=== PATIENT | female | born 1960 | race Caucasian/White ===

== ENCOUNTER 2019-06-12 09:53 | Inpatient (IN) ==
[2019-06-12] MEDS ORDERED: CeFAZolin Syr 2,000MG/20 ML 2,000 MG/20 ML SYRINGE IVPB ONE (10:09)
[2019-06-12] MEDS ORDERED: Ringers Solution, Lactated 1,000 ML IVC SCH (10:15)
[2019-06-12] MEDS ORDERED: Famotidine 20 MG/2 ML VIAL IVP ONE (10:19)
[2019-06-12] MEDS ORDERED: Acetaminophen IV 1,000 MG/100 ML INFUS..BTL IVPB ONE (10:28)
[2019-06-12] MEDS ORDERED: Pregabalin 75 MG CAPSULE PO ONE (10:29)
[2019-06-12] MEDS ORDERED: *HR* Succinylcholine 200 MG/10 ML VIAL IVP ONE (10:51)
[2019-06-12] MEDS ORDERED: *HR* Rocuronium Bromide 50 MG/5 ML VIAL ONE (10:51)
[2019-06-12] MEDS ORDERED: Tranexamic Acid 1,000 MG/10 ML VIAL ONE (10:52)
[2019-06-12] MEDS ORDERED: Lidocaine HCL 4 ML Topical Solution (Laryng-O-Jet Kit Sterile Pak) TP ONE (10:52)
[2019-06-12] MEDS ORDERED: *HR* FentaNYL (PF) 100 MCG/2 ML VIAL ONE (10:53)
[2019-06-12] MEDS ORDERED: *HR* Propofol 200 MG/20 ML VIAL IVP ONE (10:53)
[2019-06-12] MEDS ORDERED: Lidocaine -MPF 2% 2 ML VIAL ONE (10:53)
[2019-06-12] MEDS ORDERED: *HR* Midazolam HCl 2 MG/2 ML VIAL ONE (10:53)
[2019-06-12] MEDS ORDERED: Dexamethasone 4 MG/ML VIAL ONE (10:53)
[2019-06-12] MEDS ORDERED: Ondansetron 4 MG/2 ML VIAL ONE (10:53)
[2019-06-12] MEDS ORDERED: Scopolamine Patch 1.5 MG PATCH.TD72 TD ONE ×2 (10:54→10:57)
[2019-06-12] MEDS ORDERED: Ethanol\\Acetic Acid\\Na Ace\\Ben 1,000 ML IRRIG.SOLN IR ONE (11:37)
[2019-06-12] MEDS ORDERED: *HR* HYDROMORPHONE 2 MG/ML VIAL ONE (12:09)
[2019-06-12] MEDS ORDERED: Ketorolac 30 MG/ML VIAL ONE (12:45)
[2019-06-12] MEDS ORDERED: *HR* FentaNYL (PF) 100 MCG/2 ML VIAL IVP PRN (13:51)
[2019-06-12] MEDS ORDERED: *HR* Midazolam HCl 2 MG/2 ML VIAL IVP PRN (13:51)
[2019-06-12] MEDS ORDERED: *HR* Meperidine 25 MG/ML SYRINGE IVP PRN (13:51)
[2019-06-12] MEDS ORDERED: *HR* Promethazine 25 MG/ML VIAL IVP PRN ×2 (13:51→14:49)
[2019-06-12] MEDS ORDERED: *HR* OxyCODONE Immed Rel 5 MG TABLET PO PRN (13:51)
[2019-06-12] MEDS: *HR* HYDROmorphone (PF) 1 MG/ML SYRINGE IVP PRN ×2 (14:06→14:12)
[2019-06-12] MEDS ORDERED: traMADol 50 MG TABLET PO PRN (14:49)
[2019-06-12] MEDS ORDERED: Naloxone 0.4 MG/ML INJ IVP PRN (14:49)
[2019-06-12] MEDS ORDERED: Sennosides 8.6 MG TABLET PO PRN (14:49)
[2019-06-12] MEDS ORDERED: MOM Conc 10 ML UD.LIQ PO PRN (14:49)
[2019-06-12] MEDS ORDERED: Ondansetron 4 MG/2 ML VIAL IVP PRN (14:49)
[2019-06-12] MEDS ORDERED: Temazepam 15 MG CAPSULE PO PRN (14:49)
[2019-06-12 16:13] LABS: Hematocrit 37.2 % (35.3-44.9); Hemoglobin 12.4 g/dL (11.5-15.4)
[2019-06-12] MEDS: HYDROcodone BIT/Homatropine 5 MG TABLET PO PRN ×2 (17:07→21:09)
[2019-06-12] MEDS: Ascorbic Acid 500 MG TABLET PO SCH (17:07)
[2019-06-12] MEDS: Ringers Solution, Lactated 1,000 ML IVC SCH (17:08)
[2019-06-12] MEDS: *HR* Metformin 500 MG TABLET PO SCH (17:08)
[2019-06-12] MEDS ORDERED: D5% in Water 1,000 ML IVC PRN (18:27)
[2019-06-12] MEDS ORDERED: Dextrose Gel 15 GM/37.5 ML TUBE PO PRN ×2 (18:27)
[2019-06-12] MEDS ORDERED: *HR* Dextrose 50 % in Water (Syg) 50 ML SYRINGE IVP PRN (18:27)
[2019-06-12] MEDS: Pregabalin 75 MG CAPSULE PO SCH (21:10)
[2019-06-12] MEDS: Celecoxib 100 MG CAPSULE PO SCH (21:10)
[2019-06-12] MEDS: Insulin LISPRO 300 UNITS/3 ML VIAL SQ SCH (21:13)
[2019-06-13 05:49] LABS: Basophils % 0.1 %; Hematocrit 31.5 % (35.3-44.9); Immature Granulocytes % 0.4 % (0-4); Lymphocytes # 0.8 K/mcL (0.6-4.6); Mean Corpuscular HGB Conc 33.3 g/dL (31.6-35.5); Mean Corpuscular Hemoglobin 29.9 pg (28.0-33.3); Mean Corpuscular Volume 89.7 fL (83.0-100.0); Mean Platelet Volume 10.4 fL (9.4-12.4); Monocytes # 0.8 K/mcL (0.0-1.3); Monocytes % 11.7 %; Neutrophils # 5.2 K/mcL (1.6-8.9); Platelet Count 233 K/mcL (140-400); Red Blood Count 3.51 M/mcL (3.82-4.97); Segmented Neutrophils % 75.8 %; White Blood Count 6.8 K/mcL (4.3-11.1)
[2019-06-13 05:54] LABS: Hemoglobin 10.5 g/dL (11.5-15.4)
[2019-06-13] MEDS: HYDROcodone BIT/Homatropine 5 MG TABLET PO PRN ×2 (05:55→18:09)
[2019-06-13 06:05] LABS: BUN/Creatinine Ratio 28 (6-26); Blood Urea Nitrogen 23 mg/dL (6-20); Calcium 8.7 mg/dL (8.6-10.3); Carbon Dioxide 27 mEq/L (23-29); Chloride 102 mEq/L (98-107); Glucose 143 mg/dL (70-105); Osmolality,Calculated 288 (280-300); Potassium 4.5 mEq/L (3.5-5.1); Sodium 136 mEq/L (136-145); eGFR For African Americans > 60 (> 60); eGFR For Non-African Americans > 60 (> 60)
[2019-06-13] MEDS: Insulin LISPRO 300 UNITS/3 ML VIAL SQ SCH ×4 (08:33→20:57)
[2019-06-13] MEDS: Loratadine 10 MG TABLET PO SCH (08:41)
[2019-06-13] MEDS: amLODIPine 5 MG TABLET PO SCH (08:42)
[2019-06-13] MEDS: Celecoxib 100 MG CAPSULE PO SCH ×2 (08:42→20:56)
[2019-06-13] MEDS: *HR* Metformin 500 MG TABLET PO SCH ×2 (08:42→16:29)
[2019-06-13] MEDS: Ascorbic Acid 500 MG TABLET PO SCH ×2 (08:42→16:29)
[2019-06-13] MEDS: Pregabalin 75 MG CAPSULE PO SCH ×2 (08:42→20:56)
[2019-06-13] MEDS: hydroCHLOROthiazide 25 MG TABLET PO SCH (08:42)
[2019-06-13] MEDS: Multivit/Ca/Min/Fe/FA 1 TAB TABLET PO SCH (08:42)
[2019-06-13] MEDS: FLUoxetine 20 MG CAPSULE PO SCH (08:43)
[2019-06-13] MEDS ORDERED: OLOPATADINE HCL BOTH EYES SCH (09:00)
[2019-06-13] MEDS ORDERED: *HR* Enoxaparin 30 MG/0.3 ML SYRINGE SQ SCH (10:13)
[2019-06-13] MEDS: *HR* Enoxaparin 30 MG/0.3 ML SYRINGE SQ SCH ×2 (12:01→17:59)
[2019-06-13] MEDS: Fluticasone Propionate Nasal 50 MCG/SPRAY BOTTLE NS SCH (16:28)
[2019-06-14 02:48] LABS: Basophils % 0.2 %; Eosinophils # 0.1 K/mcL (0.0-0.6); Eosinophils % 1.6 %; Hematocrit 30.8 % (35.3-44.9); Immature Granulocytes % 0.6 % (0-4); Lymphocytes # 1.6 K/mcL (0.6-4.6); Lymphocytes % 25.3 %; Mean Corpuscular HGB Conc 32.5 g/dL (31.6-35.5); Mean Corpuscular Volume 92.5 fL (83.0-100.0); Mean Platelet Volume 10.5 fL (9.4-12.4); Monocytes # 0.7 K/mcL (0.0-1.3); Monocytes % 10.4 %; Platelet Count 203 K/mcL (140-400); Red Blood Count 3.33 M/mcL (3.82-4.97); Segmented Neutrophils % 61.9 %; White Blood Count 6.4 K/mcL (4.3-11.1)
[2019-06-14 02:59] LABS: BUN/Creatinine Ratio 16 (6-26); Blood Urea Nitrogen 16 mg/dL (6-20); Calcium 9.1 mg/dL (8.6-10.3); Carbon Dioxide 31 mEq/L (23-29); Chloride 97 mEq/L (98-107); Glucose 182 mg/dL (70-105); Osmolality,Calculated 284 (280-300); Potassium 4.1 mEq/L (3.5-5.1); Sodium 134 mEq/L (136-145); eGFR For African Americans > 60 (> 60); eGFR For Non-African Americans 59 (> 60)
[2019-06-14] MEDS: HYDROcodone BIT/Homatropine 5 MG TABLET PO PRN ×2 (03:45→21:44)
[2019-06-14] MEDS: *HR* Enoxaparin 30 MG/0.3 ML SYRINGE SQ SCH ×2 (05:06→18:46)
[2019-06-14] MEDS: FLUoxetine 20 MG CAPSULE PO SCH (09:52)
[2019-06-14] MEDS: hydroCHLOROthiazide 25 MG TABLET PO SCH (09:52)
[2019-06-14] MEDS: *HR* OxyCODONE Immed Rel 5 MG TABLET PO PRN ×2 (09:52→18:46)
[2019-06-14] MEDS: *HR* Metformin 500 MG TABLET PO SCH ×2 (09:54→19:57)
[2019-06-14] MEDS: Celecoxib 100 MG CAPSULE PO SCH ×3 (09:55→21:42)
[2019-06-14] MEDS: amLODIPine 5 MG TABLET PO SCH (09:55)
[2019-06-14] MEDS: Loratadine 10 MG TABLET PO SCH (09:55)
[2019-06-14] MEDS: Ascorbic Acid 500 MG TABLET PO SCH ×2 (09:55→18:45)
[2019-06-14] MEDS: Multivit/Ca/Min/Fe/FA 1 TAB TABLET PO SCH (09:55)
[2019-06-14] MEDS: Pregabalin 75 MG CAPSULE PO SCH ×3 (09:56→21:44)
[2019-06-14] MEDS: Insulin LISPRO 300 UNITS/3 ML VIAL SQ SCH ×4 (10:03→20:03)
[2019-06-14] MEDS: Fluticasone Propionate Nasal 50 MCG/SPRAY BOTTLE NS SCH (10:11)
[2019-06-14] MEDS ORDERED: tiZANidine 4 MG TABLET PO PRN (10:21)
[2019-06-14] MEDS: Ringers Solution, Lactated 1,000 ML IVC SCH (15:51)
[2019-06-15] MEDS: *HR* OxyCODONE Immed Rel 5 MG TABLET PO PRN ×2 (01:56→14:19)
[2019-06-15] MEDS: HYDROcodone BIT/Homatropine 5 MG TABLET PO PRN (05:55)
[2019-06-15] MEDS: *HR* Enoxaparin 30 MG/0.3 ML SYRINGE SQ SCH (05:55)
[2019-06-15] MEDS: Multivit/Ca/Min/Fe/FA 1 TAB TABLET PO SCH (08:24)
[2019-06-15] MEDS: Celecoxib 100 MG CAPSULE PO SCH (08:24)
[2019-06-15] MEDS: Loratadine 10 MG TABLET PO SCH (08:24)
[2019-06-15] MEDS: Pregabalin 75 MG CAPSULE PO SCH (08:24)
[2019-06-15] MEDS: Insulin LISPRO 300 UNITS/3 ML VIAL SQ SCH ×2 (08:24→12:05)
[2019-06-15] MEDS: FLUoxetine 20 MG CAPSULE PO SCH (08:24)
[2019-06-15] MEDS: Ascorbic Acid 500 MG TABLET PO SCH (08:25)
[2019-06-15] MEDS: hydroCHLOROthiazide 25 MG TABLET PO SCH (08:25)
[2019-06-15] MEDS: amLODIPine 5 MG TABLET PO SCH (08:25)
[2019-06-15] MEDS: *HR* Metformin 500 MG TABLET PO SCH (08:25)
[2019-06-15] MEDS: Fluticasone Propionate Nasal 50 MCG/SPRAY BOTTLE NS SCH (08:27)
[2019-06-15] MEDS ORDERED: FLU Vac QV 19-20 (6Month+)/PF 0.5 ML SYRINGE IM ONE (14:01)
[2019-06-15 14:36] VITALS: BP 131/81
== END 2019-06-15 15:05 | DRG 470 ==
LOC: SAMDAY 09:53 → 3NENU 14:40
PROVIDERS: ADMIT Orthopaedic Surgery; ATTEND Orthopaedic Surgery